=== PATIENT | male | born 1965 | race Hispanic/Latino ===

== ENCOUNTER 2024-02-06 21:42 | Emergency (ER) | payer OTHER ==
[~2024-02-06] VITALS: Ht 172.7 cm; Wt 102.1 kg
[2024-02-06] MEDS: DEXAMETHASONE SOD PHOSPHATE 4 MG/ML 1ML VIAL IM ONE (22:53)
[2024-02-06] MEDS ORDERED: EPIN0.3P3 IJ (23:53)
[2024-02-06] MEDS ORDERED: CETI10CA5 PO (23:53)
[2024-02-07 00:55] VITALS: BP 129/72; PULSE 76; RESP 18; O2SAT 97
== END 2024-02-07 00:56 | disposition home or self-care (01) ==
LOC: EDH 21:42
DX: T78.49XA Other allergy, initial encounter (principal); E78.00 Pure hypercholesterolemia, unspecified; Z79.899 Other long term (current) drug therapy; X58.XXXA Exposure to other specified factors, initial encounter
CPT/HCPCS: 99283; 96372; J1100

== ENCOUNTER → 2024-04-13 | Outpatient (CLI) | payer OTHER ==
[~2024-04-13] MED LIST: CETI10CA5 PO; EPIN0.3P3 IJ
== END | disposition home or self-care (01) ==
LOC: RAH 16:58
PROVIDERS: ATTEND Family Medicine
DX: N50.3 Cyst of epididymis (principal); N43.3 Hydrocele, unspecified; N50.811 Right testicular pain; R10.9 Unspecified abdominal pain
CPT/HCPCS: 76870

== ENCOUNTER → 2024-04-14 | Outpatient (CLI) | payer OTHER | END | disposition home or self-care (01) | LOC: RAH 07:49 | PROVIDERS: ATTEND Family Medicine | DX: K76.0 Fatty (change of) liver, not elsewhere classified (principal); R10.9 Unspecified abdominal pain | CPT/HCPCS: 76700 ==